=== PATIENT | female | born 1970 | race Caucasian/White ===

== ENCOUNTER 2017-04-14 18:47 | Emergency (ER) | payer OTHER ==
[~2017-04-14] VITALS: Ht 163.8 cm; Wt 59.1 kg
[~2017-04-14 18:47] MED LIST: ALBUAER3 INH; BLOO1KIT59 SQ; BLOOD GLUCOSE M1 KIT; BUPR100CR PO; GLUCTES12; INSU-99; INSU31MI; LANTINJ SQ; NICO21DI6 T-DERMAL; NOVOLOGP2 SQ; ONDA4TAB7 SL; [UNRECOGNIZED DRUG - CODE]; [UNRECOGNIZED DRUG - CODE]
[2017-04-14 18:57] VITALS: BP 148/76; PULSE 81; RESP 20; TEMP 98.7; O2SAT 100
[2017-04-14] MEDS ORDERED: MORPHINE SULFATE 2 MG/ML INJ IV PUSH ONE (19:45)
[2017-04-14] MEDS ORDERED: SODIUM CHLORIDE 0.9% FLUSH 10 ML FLUSH IVF PRN (19:45)
[2017-04-14 20:01] LABS: AUTOMATED NEUTROPHIL # 5.4 TH/MM3 (1.8-7.7); BASOPHIL # 0.1 TH/MM3 (0-0.2); BASOPHIL % 1.2 % (0.0-2.0); EOSINOPHIL # 0.1 TH/MM3 (0-0.4); EOSINOPHIL % 1.4 % (0.0-4.0); HEMATOCRIT 34.2 % (35.0-46.0); HEMO FLAGS DIFF FINAL; LYMPH % 14.4 % (9.0-44.0); MEAN CELL VOLUME 75.2 FL (80.0-100.0); MEAN CORPUSCULAR HEMOGLOBIN 23.5 PG (27.0-34.0); MEAN CORPUSCULAR HGB CONC 31.3 % (32.0-36.0); MONO % 5.9 % (0.0-8.0); NEUT % 77.1 % (16.0-70.0); PLATELET COUNT 176 TH/MM3 (150-450); RED BLOOD COUNT 4.55 MIL/MM3 (4.00-5.30)
[2017-04-14 20:05] VITALS: BP 115/58; PULSE 79; RESP 20; O2SAT 98
[2017-04-14 20:15] LABS: APTT (PATIENT) 20.4 SEC (24.3-30.1); INTERNATIONAL NORMALIZED RATIO 0.9 RATIO; PROTHROMBIN TIME - PATIENT 10.3 SEC (9.8-11.6)
[2017-04-14] MEDS ORDERED: DEXT 5%-NACL 0.45% 1000 ML INJ 1,000 ML IV SCH (20:30)
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
[2017-04-14 21:15] LABS: BICARBONATE 23.5 MEQ/L (21.0-32.0); POTASSIUM 3.7 MEQ/L (3.5-5.1)
[2017-04-14] MEDS ORDERED: IOHEXOL 350 MG/ML 10 ML VIAL (for RAD DIAG) IVCONTRAST ONE (21:42)
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
[2017-04-14] MEDS ORDERED: KETOROLAC TROMETHAMINE 60 MG/2 ML (IM) VIAL IM ONE (22:30)
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
[2017-04-14] MEDS ORDERED: TRAM50TA PO (23:35)
[2017-04-14] MEDS ORDERED: IBUP-232 PO (23:35)
--- NOTE | 2017-04-15 09:33 | EKG ---
Date Performed: 04/14/2017 Time Performed: 19:02:05 PTAGE: 46 years EKG: Sinus rhythm Compared to prior tracing no significant change ABNORMAL ECG PREVIOUS TRACING : 02/25/2015 20.02 DOCTOR: Jeremie Morin Interpretating Date/Time 04/15/2017 09:32:24
[2017-04-17] MEDS ORDERED: ROBA500T PO (13:57)
[2017-04-18] MEDS ORDERED: KETO10 PO (14:16)
[2017-04-24] MEDS ORDERED: IBUP1TAB7 PO (17:05)
== END 2017-04-15 00:16 | disposition home or self-care (01) ==
LOC: NEPC 18:47
DX: S20.20XA Contusion of thorax, unspecified, initial encounter (principal); E11.9 Type 2 diabetes mellitus without complications; V89.2XXA Person injured in unspecified motor-vehicle accident, traffic, initial encounter; Z79.4 Long term (current) use of insulin
CPT/HCPCS: 70450; 71260; 72125; 80048; 85025; 85610; 85730; 86850; 86900; 86901; 93005; 96372; 96374; 99285; J1885; J2270; Q9967